=== PATIENT | female | born 1950 | race Two or more races ===

== ENCOUNTER → 2018-04-25 | Outpatient (CLI) | payer MEDICARE ==
[~2018-04-25] MED LIST: IOHEXOL 300 MG/ML 75 ML VIAL. IV ONE
[2018-04-25 11:33] LABS: CREATININE 0.9 mg/dL (0.6-1.0); GFR 62.1
--- NOTE | 2018-04-25 12:03 | RAD ---
CT CHEST W/CONTRAST Indication: Chronic cough, pulmonary nodule Technique: Postcontrast CT imaging was performed of the chest, multiplanar reconstruction images submitted. One or more of the following individualized dose reduction techniques were utilized for this examination: 1. Automated exposure control 2. Adjustment of the mA and/or kV according to patient size 3. Use of iterative reconstruction technique. Comparison: None Findings: There is some motion degradation. Thoracic aortic caliber is within normal limits, no intraluminal flap. There is no pericardial or pleural fluid, lobar consolidation, or pneumothorax. No significantly enlarged nodes are identified of the chest. There is right pretracheal node about 0.9 cm short axis dimension not considered significantly enlarged. There may be hepatic steatosis. There is a small hypodense lesion posteriorly of the right lobe of liver about 0.5 cm, density characteristics suggestive of a small cyst although difficult to accurately characterize. Major airways are patent. There is a small 0.4 cm left lower lobe noncalcified pulmonary nodule axial image 62 series 4. There is mild peripheral septal thickening with basilar predominance bilaterally. No honeycombing is identified. There is mild dependent atelectasis closer to the lung bases greater on the left. IMPRESSION: 1. There is no lobar consolidation or pleural fluid. There is a small 0.4 cm left lower lobe nodule, optional 12 month follow-up if increased risk factors for neoplasm, otherwise no additional follow-up needed as per revised Fleischner guidelines if low risk factors. There is mild peripheral septal thickening with basilar predominance, could be due to mild interstitial edema or infiltrate. 2. There may be hepatic steatosis. Small hypodense lesion of the right lobe of the liver is difficult characterize although possibly small cyst. Electronically signed by: Oscar Barba MD (04/25/2018 11:59 AM) [email or web address]
== END | disposition home or self-care (01) ==
LOC: CT 10:41
PROVIDERS: ATTEND Nurse Practitioner Family
DX: J98.11 Atelectasis (principal); R91.1 Solitary pulmonary nodule; K76.89 Other specified diseases of liver
CPT/HCPCS: 36415; 71260; 82565; 84520; Q9967

== ENCOUNTER → 2018-05-01 | Outpatient (CLI) | payer MEDICARE ==
[~2018-05-01] MED LIST changes: +IOHEXOL 240 MG/ML 50ML VIAL. ONE
--- NOTE | 2018-05-01 15:34 | RAD ---
Examination: CT ABD PELV W/ORAL IV CONTRAST History: LLQ PAIN, POSSIBLE diverticulitis. ORAL AND 75MLS OMNI 300 IV CONTRAST Comparison/Correlation: None Findings: Axial images of the abdomen and pelvis were obtained following IV contrast. Sagittal and coronal reformatted images were provided. Minimal atelectasis at the left costophrenic sulcus suggested. There is a too small to characterize 0.4 cm diameter lesion at the right hepatic lobe inferiorly likely representing a cyst or biliary hamartoma. Spleen is normal. Pancreas is unremarkable. Adrenal glands are normal. Kidneys are unremarkable. Left renal superficial to small to characterize lesion which probably represents a cyst is identified. Gallbladder fossa is unremarkable. Circumferential wall thickening of the colon and rectum diffusely is evident. Subtle surrounding stranding is present especially at the proximal colon. Minimal diverticulosis of the colon is present. Appendix is normal. No abscess. No extraluminal gas. No enlarged abdominal or pelvic lymph nodes. Significant bowel 4-5 disc space narrowing is present. Bony structures are grossly unremarkable. Impression: Pancolitis. No abscess. Minimal diverticulosis. Electronically signed by: Lauri Gtz MD (05/01/2018 3:29 PM) [id number]
== END | disposition home or self-care (01) ==
LOC: RAD 13:20
PROVIDERS: ATTEND Nurse Practitioner Family
DX: K57.30 Diverticulosis of large intestine without perforation or abscess without bleeding (principal); J98.11 Atelectasis
CPT/HCPCS: 74177; Q9967